=== PATIENT | female | born 1970 | race African-American/Black ===

== ENCOUNTER 2019-06-28 22:47 | Emergency (ER) | payer OTHER ==
[~2019-06-28] VITALS: Ht 154.9 cm; Wt 121.7 kg
[~2019-06-28 22:47] MED LIST: ALBU17IN INH; DOXY100C PO; LISI10TA4 PO; MOTR200T44 PO; NAPR-885 PO; NORC1TAB7 PO
[2019-06-28] MEDS ORDERED: NORCO, ANEXSIA 5/325MG TABLET (HYDROcodone/ACETAMINOPHEN) PO ONE (23:30)
[2019-06-28] MEDS ORDERED: CEPHALEXIN 500 MG CAP PO ONE (23:30)
[2019-06-28] MEDS ORDERED: MUPIROCIN 2% OINT 22 GM TUBE TOP ONE (23:30)
[2019-06-29] MEDS ORDERED: KEFL500C17 PO (00:25)
[2019-06-29 00:34] VITALS: BP 186/99
[2019-06-29] MEDS ORDERED: NORV5TAB PO (00:36)
[2019-06-29] MEDS ORDERED: NORCO 5/325MG TABLET (BULK FOR ED) PO ONE (00:45)
--- NOTE | 2019-06-29 07:56 | REP ---
Clinical: Paronychia. Technique: Six views of the left fingers. Findings: Soft-tissue swelling primarily involves first digit. The osseous structures are intact and normal. No subcutaneous emphysema or foreign body identified. Impression: Soft-tissue swelling. No obvious osseous involvement. Electronically Signed by Shaun Harp MD 06/29/2019 07:48 A
== END 2019-06-29 00:49 | disposition home or self-care (01) ==
LOC: M ED 22:47
DX: L03.012 Cellulitis of left finger (principal); I10 Essential (primary) hypertension; J45.909 Unspecified asthma, uncomplicated; E78.5 Hyperlipidemia, unspecified; Z91.048 Other nonmedicinal substance allergy status; Z91.013 Allergy to seafood; Z79.899 Other long term (current) drug therapy

== ENCOUNTER 2019-09-17 15:57 | Emergency (ER) | payer OTHER ==
[~2019-09-17] VITALS: Ht 154.9 cm; Wt 121.4 kg
[~2019-09-17 15:57] MED LIST changes: +KEFL500C17 PO; +NORV5TAB PO
--- NOTE | 2019-09-17 16:33 | REP ---
Left ankle four views: There is a nondisplaced fracture of the distal fibula. There is circumferential soft tissue edema. Mineralization and joint spaces are unremarkable. There are no calcifications or foreign bodies. Impression: Nondisplaced fracture of the distal fibula. Circumferential soft tissue edema. Electronically Signed by Danny Manriquez MD 09/17/2019 04:25 P
[2019-09-17] MEDS ORDERED: IBUP80TA PO (18:12)
[2019-09-17] MEDS ORDERED: NORC1TAB7 PO (18:12)
[2019-09-17 18:13] VITALS: BP 171/87
[2019-09-17] MEDS ORDERED: IBUPROFEN 800 MG TAB PO ONE (18:15)
--- NOTE | 2019-09-17 18:56 | REP ---
LEFT FOOT COMPLETE: 09/17/2019. Comparison: Left ankle series today. Clinical history: Swelling, pain, bruising. Findings: Prominent soft tissue swelling about the lower calf ankle and hind foot as well as the dorsal midfoot and distal forefoot. Nondisplaced fracture of the distal fibula is noted on the ankle series is better visualized on that study. No gross disruption of the mortise joint. Distal tibia intact. Subtalar joints intact. The calcaneus shows no heel spurs. Talonavicular, calcaneocuboid joints are normal. Tarsal bones and metatarsals without fracture or focal lesion. Flexion of all of the MTP joints noted with the IP joints grossly intact. No visible fractures of the metatarsals or phalanges. Impression: 1. Fracture of the distal fibula as seen on the ankle series and better defined on that study. 2. Prominent soft tissue swelling distal calf, ankle, hindfoot and dorsal aspect of the midfoot to distal forefoot. No fracture of the tarsal bones, metatarsals or phalanges. Electronically Signed by Rivas Geronimo MD 09/17/2019 07:26 P
== END 2019-09-17 18:25 | disposition home or self-care (01) ==
LOC: M ED 15:57
DX: S82.832A Other fracture of upper and lower end of left fibula, initial encounter for closed fracture (principal); X50.9XXA Other and unspecified overexertion or strenuous movements or postures, initial encounter; Y92.018 Other place in single-family (private) house as the place of occurrence of the external cause; I10 Essential (primary) hypertension; E11.9 Type 2 diabetes mellitus without complications; J45.909 Unspecified asthma, uncomplicated; E78.5 Hyperlipidemia, unspecified; F33.9 Major depressive disorder, recurrent, unspecified; F41.9 Anxiety disorder, unspecified; F20.9 Schizophrenia, unspecified; Z91.018 Allergy to other foods; Z87.891 Personal history of nicotine dependence

== ENCOUNTER 2023-03-07 14:21 | Emergency (ER) | payer OTHER ==
[~2023-03-07] VITALS: Ht 154.9 cm; Wt 119.1 kg
[~2023-03-07 14:21] MED LIST changes: -DOXY100C PO; +DOXY100C3 PO; +IBUP80TA PO; +LISI10TA22 PO; -LISI10TA4 PO
[2023-03-07 15:17] LABS: BASO # 0.1 10^3/uL (0.0-0.2); BASO % 0.8 % (0.0-1.0); EOS # 0.2 10^3/uL (0.0-0.5); EOS % 2.9 % (0.0-3.0); HEMATOCRIT 41.3 % (36.0-47.0); HEMOGLOBIN 12.8 g/dl (12.0-15.5); LYMPH # 2.3 10^3/uL (1.5-5.0); LYMPH % 33.9 % (24.0-44.0); MEAN CORPUSCULAR HEMOGLOBIN 27.6 pg (27.0-33.0); MEAN CORPUSCULAR VOLUME 89.2 fl (80.0-96.0); MONO # 0.4 10^3/uL (0.0-0.8); MONO % 6.6 % (2.0-8.0); NEUTROPHILS # 3.7 10^3/uL (1.5-8.5); NEUTROPHILS % 55.5 % (36.0-66.0); PLATELET COUNT, AUTOMATED 355 10^3/uL (150-450); RED BLOOD COUNT 4.63 10^6/uL (4.00-5.40); WHITE BLOOD COUNT 6.7 10^3/uL (4.0-10.0)
[2023-03-07 15:43] LABS: LIPASE 25 U/L (12-53)
[2023-03-07 15:45] LABS: ALBUMIN 3.4 G/DL (3.2-5.2); ALKALINE PHOSPHATASE 74 U/L (46-116); ALT/SGPT < 9 U/L (7.0-40); AST/SGOT 16 U/L (<34); BILIRUBIN,DIRECT < 0.1 MG/DL (<0.4); BILIRUBIN,TOTAL 0.4 MG/DL (0.3-1.2); BLOOD UREA NITROGEN 14 MG/DL (9-23); CALCIUM LEVEL 9.5 MG/DL (8.5-10.1); CARBON DIOXIDE LEVEL 28 MMOL/L (20-31); CHLORIDE LEVEL 105 MMOL/L (98-107); CREATININE FOR GFR 0.72 MG/DL (0.55-1.30); GLOMERULAR FILTRATION RATE > 60.0 (>51); GLUCOSE, FASTING 284 MG/DL (60-100); MAGNESIUM LEVEL 1.6 MG/DL (1.8-2.4); POTASSIUM SERUM 4.7 MMOL/L (3.5-5.1); SODIUM LEVEL 138 MMOL/L (136-145); TOTAL PROTEIN 6.6 G/DL (5.7-8.2)
[2023-03-07] MEDS ORDERED: MAGNESIUM OXIDE 400MG TAB (MAG-OX) PO ONE (17:20)
[2023-03-07] MEDS ORDERED: NS 1,000 ML IV ONE (17:50)
[2023-03-07 18:42] VITALS: TEMP 97.7
[2023-03-07 20:00] LABS: HEMOGLOBIN A1c 8.1 % (4.0-6.0)
[2023-03-07] MEDS ORDERED: METF500T13 PO (20:11)
[2023-03-07] MEDS ORDERED: metFORMIN (GLUCOPHAGE) 500MG TAB PO ONE (20:15)
[2023-03-07 20:27] VITALS: BP 144/84; O2SAT 98
== END 2023-03-07 20:29 | disposition home or self-care (01) ==
LOC: EDBD 14:21 → M ED 14:21
DX: R25.2 Cramp and spasm (principal); E11.9 Type 2 diabetes mellitus without complications; F31.9 Bipolar disorder, unspecified; F17.200 Nicotine dependence, unspecified, uncomplicated; F12.10 Cannabis abuse, uncomplicated; Z91.013 Allergy to seafood; Z91.048 Other nonmedicinal substance allergy status; Z79.4 Long term (current) use of insulin; Z79.52 Long term (current) use of systemic steroids

== ENCOUNTER → 2024-03-21 | Outpatient (REF) | payer OTHER ==
[~2024-03-21] MED LIST changes: +METF500T13 PO
[2024-03-21 18:43] LABS: BASO % 0.6 % (0.0-1.0); EOS # 0.1 10^3/uL (0.0-0.5); EOS % 1.7 % (0.0-3.0); HEMATOCRIT 44.1 % (36.0-47.0); HEMOGLOBIN 13.7 g/dl (12.0-15.5); LYMPH # 3.2 10^3/uL (1.5-5.0); LYMPH % 49.2 % (24.0-44.0); MEAN CORPUSCULAR HEMOGLOBIN 28.1 pg (27.0-33.0); MEAN CORPUSCULAR HGB CONC 31.1 g/dl (32.0-36.5); MEAN CORPUSCULAR VOLUME 90.4 fl (80.0-96.0); MONO # 0.4 10^3/uL (0.0-0.8); MONO % 6.1 % (2.0-8.0); NEUTROPHILS # 2.8 10^3/uL (1.5-8.5); NEUTROPHILS % 41.9 % (36.0-66.0); PLATELET COUNT, AUTOMATED 390 10^3/uL (150-450); RED BLOOD COUNT 4.88 10^6/uL (4.00-5.40); WHITE BLOOD COUNT 6.6 10^3/uL (4.0-10.0)
[2024-03-21 19:14] LABS: HEMOGLOBIN A1c 7.3 % (4.0-6.0)
[2024-03-21 19:19] LABS: TOTAL 25(OH) VITAMIN D 9.6 NG/ML (20.0-100.0)
[2024-03-21 19:20] LABS: ALBUMIN 3.8 G/DL (3.2-5.2); ALKALINE PHOSPHATASE 86 U/L (46-116); ALT/SGPT 15 U/L (7.0-40); AST/SGOT < 8 U/L (<34); BILIRUBIN,TOTAL 0.9 MG/DL (0.3-1.2); BLOOD UREA NITROGEN 6 MG/DL (9-23); CALCIUM LEVEL 9.6 MG/DL (8.5-10.1); CARBON DIOXIDE LEVEL 28 MMOL/L (20-31); CHLORIDE LEVEL 108 MMOL/L (98-107); CHOLESTEROL LEVEL 221 MG/DL (<200); CHOLESTEROL RISK RATIO 3.84 (<5); CREATININE FOR GFR 0.71 MG/DL (0.55-1.30); GLOMERULAR FILTRATION RATE > 60.0 (>51); GLUCOSE, FASTING 146 MG/DL (60-100); HDL CHOLESTEROL 57.5 MG/DL (>40); LDL CHOLESTEROL 138.9 MG/DL (<100); NON-HDL-C 163.5 MG/DL; POTASSIUM SERUM 4.4 MMOL/L (3.5-5.1); SODIUM LEVEL 140 MMOL/L (136-145); TOTAL PROTEIN 7.5 G/DL (5.7-8.2); TRIGLYCERIDES LEVEL 123 MG/DL (<150)
== END ==
LOC: M LAB REF 17:09
PROVIDERS: ATTEND Nurse Practitioner Family
DX: E66.3 Overweight (principal); E55.9 Vitamin D deficiency, unspecified; R53.83 Other fatigue; D64.9 Anemia, unspecified; Z11.9 Encounter for screening for infectious and parasitic diseases, unspecified; E11.9 Type 2 diabetes mellitus without complications; Z12.11 Encounter for screening for malignant neoplasm of colon

== ENCOUNTER → 2024-04-10 | Outpatient (CLI) | payer OTHER | LOC: M WHC 09:06 | PROVIDERS: ATTEND Nurse Practitioner Family | DX: Z12.31 Encounter for screening mammogram for malignant neoplasm of breast (principal) ==

== ENCOUNTER → 2024-04-25 | Outpatient (REF) | payer OTHER ==
[2024-04-26 13:58] LABS: CREATININE, URINE 140.6 MG/DL
[2024-04-26 13:59] LABS: MALB URINE SIEMENS < 3.0 MG/L; MAU/CREAT RATIO 2.1 MCG/MG (0.0-30.0)
== END ==
LOC: M LAB REF 12:52
PROVIDERS: ATTEND Nurse Practitioner Family
DX: E11.9 Type 2 diabetes mellitus without complications (principal)

== ENCOUNTER → 2024-04-26 | Outpatient (CLI) | payer OTHER | LOC: M RAD 11:51 | PROVIDERS: ATTEND Nurse Practitioner Family | DX: Z12.2 Encounter for screening for malignant neoplasm of respiratory organs (principal); F17.211 Nicotine dependence, cigarettes, in remission ==

== ENCOUNTER → 2024-05-28 | Outpatient (REF) | payer OTHER ==
[2024-06-05 11:51] LABS: GC DNA AMPLIFICATION NEGATIVE (NEGATIVE); Trichomonas vaginalis (AMP) NOT DETECTED (NEGATIVE)
== END ==
LOC: M LAB REF 11:34
PROVIDERS: ATTEND Nurse Practitioner Family
DX: Z11.9 Encounter for screening for infectious and parasitic diseases, unspecified (principal)

== ENCOUNTER → 2024-08-14 | Outpatient (REF) | payer OTHER ==
[2024-08-14 16:58] LABS: ALBUMIN 3.2 G/DL (3.2-5.2); BILIRUBIN,DIRECT 0.2 MG/DL (<0.4); BILIRUBIN,TOTAL 0.5 MG/DL (0.3-1.2); CHOLESTEROL RISK RATIO 3.73 (<5); LDL CHOLESTEROL 118.8 MG/DL (<100); TOTAL PROTEIN 7.2 G/DL (5.7-8.2)
== END ==
LOC: M LAB REF 16:26
PROVIDERS: ATTEND Nurse Practitioner Family
DX: E78.5 Hyperlipidemia, unspecified (principal)

== ENCOUNTER → 2025-04-01 | Outpatient (CLI) | payer OTHER | LOC: M RAD 13:19 | PROVIDERS: ATTEND Nurse Practitioner Family | DX: M17.0 Bilateral primary osteoarthritis of knee (principal); M25.561 Pain in right knee; M25.562 Pain in left knee; G89.29 Other chronic pain ==

== ENCOUNTER → 2025-04-14 | Outpatient (CLI) | payer OTHER | LOC: M WHC 12:08 | PROVIDERS: ATTEND Nurse Practitioner Family | DX: Z12.31 Encounter for screening mammogram for malignant neoplasm of breast (principal) ==

== ENCOUNTER 2025-04-15 13:37 | Outpatient (RCR) | payer OTHER | END 2025-04-27 | LOC: M PT 13:37 | PROVIDERS: ATTEND Nurse Practitioner Family | DX: M17.0 Bilateral primary osteoarthritis of knee (principal) ==

== ENCOUNTER 2025-05-16 09:15 | Outpatient (RCR) | payer OTHER | END 2025-05-27 | LOC: M PT 09:15 | PROVIDERS: ATTEND Nurse Practitioner Family | DX: M19.90 Unspecified osteoarthritis, unspecified site (principal) ==

== ENCOUNTER → 2025-06-04 | Outpatient (CLI) | payer OTHER | LOC: M PLAIMG 13:50 | PROVIDERS: ATTEND Physician Assistant | DX: M22.2X2 Patellofemoral disorders, left knee (principal); M22.2X1 Patellofemoral disorders, right knee; M67.461 Ganglion, right knee; M25.461 Effusion, right knee; S83.241A Other tear of medial meniscus, current injury, right knee, initial encounter; S83.411A Sprain of medial collateral ligament of right knee, initial encounter; S83.421A Sprain of lateral collateral ligament of right knee, initial encounter; M25.462 Effusion, left knee; M17.0 Bilateral primary osteoarthritis of knee; X58.XXXA Exposure to other specified factors, initial encounter; Y92.9 Unspecified place or not applicable; Y93.9 Activity, unspecified; Y99.9 Unspecified external cause status ==